=== PATIENT | female | born 1965 | race Caucasian/White ===

== ENCOUNTER 2018-10-05 20:22 | Emergency (ER) | payer OTHER ==
[2018-10-05 20:26] VITALS: BP 126/72; PULSE 111; TEMP 99.5; BMI 31.1
--- NOTE | 2018-10-05 20:33 | PDOC ---
History of Present Illness - General Chief Complaint: Vomiting/Diarrhea Stated Complaint: VOMITING/DIARRHEA History Source: Patient - History of Present Illness Initial Comments: 10/05/18 20:34 The patient is a 53 year old female with a PMH of NIDDM and HLD who presents with acute onset of nausea, NBNB vomiting, and non-bloody diarrhea. Patient states symptoms woke her up around 4 a.m. this morning and she has not been able to tolerate PO intake. Endorses chills. No recent travel or sick contacts at home. Did not recieve the Influenza vaccine. The patient denies chest pain, shortness of breath, numbness/tingling, palpitations, lightheadedness, sore throat, cough. NKDA Surgical: none reported Social: social alcohol, denies other toxic habits PMD: Dr. Egan As per EMR, prior evaluations for back pain and eye irritation. No previous evaluation in EMR for current symptoms. Past History - Past Medical History Allergies/Adverse Reactions: Allergies Allergy/AdvReac Type Severity Reaction Status Date / Time No Known Allergies Allergy Verified 10/05/18 20:26 Home Medications: Ambulatory Orders Amoxicillin/Potassium Clav [Augmentin 500-125 Tablet] 1 each PO TID #30 tablet 01/08/15 Atorvastatin Ca [Lipitor] 10 mg PO DAILY 01/08/15 Gentamicin 0.3% Eye Drops - 1 drop .ROUTE Q4H #1 dropsbtl 01/08/15 metFORMIN HCL [Glucophage -] 500 mg PO DAILY 01/08/15 Cephalexin [Keflex] 500 mg PO TID 7 Days #21 capsule 10/05/18 COPD: No Diabetes: Yes Hypercholesterolemia: Yes - Immunization History Immunization Up to Date: Yes - Suicide/Smoking/Psychosocial Hx Smoking History: Never smoked Have you smoked in the past 12 months: No Information on smoking cessation initiated: No Hx Alcohol Use: No Drug/Substance Use Hx: No Substance Use Type: None Review of Systems - Review of Systems Constitutional: Yes: Chills. No: Fever HEENTM: No: Blurred Vision, Hearing Loss Respiratory: No: Cough, Shortness of Breath Cardiac (ROS): No: Chest Pain, Lightheadedness, Palpitations, Syncope ABD/GI: Yes: Diarrhea, Nausea, Vomiting *Physical Exam - Vital Signs Last Vital Signs Temp Pulse Resp BP Pulse Ox 99.5 F 111 H 16 126/72 98 10/05/18 20:24 10/05/18 20:24 10/05/18 20:24 10/05/18 20:24 10/05/18 20:24 - Physical Exam General Appearance: Yes: Nourished, Appropriately Dressed HEENT: positive: Normal Voice, Hearing Grossly Normal. negative: Pharyngeal Erythema, Tonsillar Exudate, TM Bulging Neck: positive: Trachea midline, Supple Respiratory/Chest: positive: Lungs Clear, Normal Breath Sounds. negative: Crackles, Wheezing Cardiovascular: positive: S1, S2 Gastrointestinal/Abdominal: positive: Normal Bowel Sounds, Soft Extremity: positive: Normal Capillary Refill, Normal Inspection Integumentary: positive: Normal Color, Dry, Warm Neurologic: positive: Fully Oriented, Alert ED Treatment Course - LABORATORY CBC & Chemistry Diagram: 10/05/18 21:12 10/05/18 21:12 Medical Decision Making - Medical Decision Making 10/05/18 21:28 53 year old female with acute onset of N/V, non-bloody diarrhea. VS unremarkable. Belly exam benign. DDx includes viral gastritis/gastroenteritis , DKA/HHONK will also test for Influenza. Given physical exam findings less likely acute abdomen including cholecystitis, acute appendicitis. GI cocktail + IV fluids. Fingerstick pending. Reassess. 10/05/18 21:57 Influenza A/B negative 10/05/18 22:22 CBC, CMP unremarkable Patient reassessed @ bedside, symptomatically improved UA pending 10/05/18 22:50 Patient reassessed @ bedside Repeat HR 88 Symptomatically improved, no episodes of emesis while in ED UA pending 10/05/18 23:09 UA shows 1+ blood - will treat for UTI; give patient pyelo return precautions Clinical Impression: UTI +/- Viral Gastroenteritis *DC/Admit/Observation/Transfer Diagnosis at time of Disposition: Nausea and vomiting - Prescriptions Prescriptions: Cephalexin [Keflex] 500 mg PO TID 7 Days #21 capsule - Referrals Referrals: Mayar Egan [Primary Care Provider] - - Patient Instructions Additional Instructions: At this time you are safe for discharge home. We have sent an antibiotic to your pharmacy for a urinary tract infection. Please complete the entire antibiotic course. Please follow-up with your primary care doctor in the next 3 days. Your care is not complete until you are evaluated by Dr. Egan. Return to the Emergency Department for any new/worsening/concerning symptoms including blood in your urine, lower back pain. - Post Discharge Activity
[2018-10-05] MEDS ORDERED: SODIUM CHLORIDE 0.9% 500 ML INFUS.BAG IV ONE (21:10)
[2018-10-05] MEDS ORDERED: MAG HYDROX/AL HYDROX/SIMETH 30 ML UNIT-DOSE CUP PO ONE (21:11)
[2018-10-05] MEDS ORDERED: FAMOTIDINE 20 MG/50 ML IVPB 20 MG/50 ML MG IVPB ONE ×2 (21:11→21:35)
[2018-10-05] MEDS ORDERED: MAG HYDROX/AL HYDROX/SIMETH 30 ML UNIT-DOSE CUP ONE (21:35)
[2018-10-05 21:42] LABS: BASO % 0.2 % (0-2.0); EOS % 0.1 % (0-4.5); HEMATOCRIT 44.8 % (32.4-45.2); HEMOGLOBIN 15.4 GM/dL (10.7-15.3); LYMPH % 4.1 % (8-40); MCH 29.3 pg (25.7-33.7); MCHC 34.3 g/dl (32.0-36.0); MEAN CELL VOLUME 85.7 fl (80-96); MONO % 2.9 % (3.8-10.2); NEUT % 92.7 % (42.8-82.8); PLATELET COUNT 239 K/MM3 (134-434); RBC 5.23 M/mm3 (3.60-5.2); RDW 12.8 % (11.6-15.6); WHITE BLOOD COUNT 10.1 K/mm3 (4.0-10.0)
[2018-10-05] MEDS ORDERED: ACETAMINOPHEN 325 MG TABLET (FP) PO ONE (21:44)
--- NOTE | 2018-10-05 21:45 | PDOC ---
Attending Attestation - HPI HPI: 10/05/18 23:10 The patient is a 53 year old female with a past medical history of non insulin dependent diabetes and HLD here today for evaluation of vomiting and diarrhea. The patient reports that she woke up around 4 AM today and vomited. Since then she reports 4-5 episodes of vomiting and 5-6 episodes of diarrhea. She notes that she hasnt been able to tolerate any PO intake and notes chills. Patient denies headache, lightheadedness. Denies fever. Denies chest pain, shortness of breath. Denies nausea, vomiting, diarrhea, abdominal pain. Denies urinary symptoms. Allergies: NKA PCP: Mayra Egan - Physicial Exam PE: 10/05/18 23:10 GENERAL: +flushed face. Awake, alert, and fully oriented, in no acute distress HEAD: No signs of trauma EYES: PERRLA, EOMI, sclera anicteric, conjunctiva clear ENT: Auricles normal inspection, hearing grossly normal, nares patent, oropharynx clear without exudates. Moist mucosa NECK: Normal ROM, supple, no lymphadenopathy, JVD, or masses LUNGS: Breath sounds equal, clear to auscultation bilaterally. No wheezes, and no crackles HEART: Regular rate and rhythm, normal S1 and S2, no murmurs, rubs or gallops ABDOMEN: +suprapubic tenderness, left side more than right side. Soft, normoactive bowel sounds. No guarding, no rebound. No masses EXTREMITIES: Normal range of motion, no edema. No clubbing or cyanosis. No cords , erythema, or tenderness NEUROLOGICAL: Cranial nerves II through XII grossly intact. Normal speech, normal gait SKIN: Warm, Dry, normal turgor, no rashes or lesions noted. <Lakesha Ramos - Last Filed: 10/05/18 23:10> - Resident Resident Name: Daily Deras - ED Attending Attestation I have performed the following: I have examined & evaluated the patient, The case was reviewed & discussed with the resident, I agree w/resident's findings & plan - Medical Decision Making 10/05/18 21:44 Pt has the same stomach virus that is affecting so many in this neighborhood. Ongoing since 4am. She will have basic labs and she will be hydrated. D/c when improved. 10/05/18 22:41 Pt feeling slightly improved, but states that she has dysuria 10/06/18 04:17 Pt will go home with keflex. She get ceftriaxone in the ER <Gem Sanford - Last Filed: 10/06/18 04:17>
[2018-10-05] MEDS ORDERED: ACETAMINOPHEN 325 MG TABLET (FP) ONE (22:08)
[2018-10-05 22:11] LABS: ALBUMIN 3.9 g/dl (3.4-5.0); ALK PHOS 100 U/L (45-117); ANION GAP 7 MMOL/L (8-16); BILIRUBIN,TOTAL 0.6 mg/dL (0.2-1); BLOOD UREA NITROGEN 12 mg/dL (7-18); CALCIUM 8.7 mg/dL (8.5-10.1); CHLORIDE 103 mmol/L (98-107); CO2 26 mmol/L (21-32); CREATININE 0.6 mg/dL (0.55-1.3); GLUCOSE,RANDOM 190 mg/dL (74-106); LIPASE 144 U/L (73-393); POTASSIUM 3.6 mmol/L (3.5-5.1); SGOT/AST 12 U/L (15-37); SGPT/ALT 27 U/L (13-61); SODIUM 137 mmol/L (136-145); TOT PROT 7.2 g/dl (6.4-8.2)
[2018-10-05 22:22] LABS: PLATELET ESTIMATE ADEQUATE
[2018-10-05] MEDS ORDERED: CEFTRIAXONE 1 GM in DEXTROSE 5%-WATER - 50 ML IVPB ONE (22:42)
[2018-10-05 22:45] LABS: PH,URINE 6.5 (5.0-8.0); URINE APPEARANCE CLEAR; URINE BILIRUBIN NEGATIVE (NEGATIVE); URINE COLOR YELLOW; URINE GLUCOSE (UA) NEGATIVE (NEGATIVE); URINE KETONE NEGATIVE (NEGATIVE); URINE LEUK ESTERASE NEGATIVE (NEGATIVE); URINE NITRITE NEGATIVE (NEGATIVE); URINE PROTEIN NEGATIVE (NEGATIVE); URINE UROBILINOGEN 0.2 mg/dL (0.2-1.0)
[2018-10-05] MEDS ORDERED: CEFTRIAXONE 1 GM/50 ML BAG ONE (22:56)
[2018-10-05 23:04] LABS: EPI CELLS 2.4 /HPF (0-5/HPF); URINE WBC 0.9 /hpf (0-5)
[2018-10-05 23:05] LABS: URINE BACTERIA 42.8 /hpf (NEGATIVE); URINE CASTS NONE SEEN /hpf (0-8)
== END 2018-10-05 23:32 | disposition home or self-care (01) ==
LOC: JER 20:22
DX: N39.0 Urinary tract infection, site not specified (principal); R31.9 Hematuria, unspecified; A08.4 Viral intestinal infection, unspecified; B97.89 Other viral agents as the cause of diseases classified elsewhere
CPT/HCPCS: 36415; 80053; 81003; 83605; 83690; 85025; 87086; 87804; 99283-25

== ENCOUNTER 2021-10-06 09:58 | Emergency (ER) | payer OTHER ==
[2021-10-06 10:06] VITALS: BP 150/80; PULSE 89; TEMP 97.5; BMI 31.4
[2021-10-06] MEDS ORDERED: SODIUM CHLORIDE 0.9% 500 ML INFUS.BAG IV ONE (10:42)
[2021-10-06 11:52] LABS: BASO % 0.7 % (0-2.0); EOS % 0.7 % (0-4.5); HEMATOCRIT 43.5 % (32.4-45.2); HEMOGLOBIN 14.7 GM/dL (10.7-15.3); LYMPH % 19.9 % (8-40); MCH 28.8 pg (25.7-33.7); MCHC 33.7 g/dl (32.0-36.0); MEAN CELL VOLUME 85.5 fl (80-96); MEAN PLT VOLUME 7.8 fl (7.5-11.1); NEUT % 72.7 % (42.8-82.8); PLATELET COUNT 278 10^3/uL (134-434); RBC 5.09 M/mm3 (3.60-5.2); RDW 12.8 % (11.6-15.6); WHITE BLOOD COUNT 6.5 K/mm3 (4.0-10.0)
[2021-10-06 12:26] LABS: BLOOD UREA NITROGEN 10.2 mg/dL (7-18)
[2021-10-06 12:27] LABS: ALBUMIN 3.8 g/dl (3.4-5.0)
[2021-10-06 12:29] LABS: CREATININE 0.7 mg/dL (0.55-1.3)
[2021-10-06 12:30] LABS: BILIRUBIN,TOTAL 0.4 mg/dL (0.2-1)
== END 2021-10-06 13:39 | disposition home or self-care (01) ==
LOC: JER 09:58
DX: K62.5 Hemorrhage of anus and rectum (principal)
CPT/HCPCS: 36415; 80053; 82272; 85025; 99284-25